=== PATIENT | female | born 1985 | race American Indian/Alaskan Native ===

== ENCOUNTER 2020-07-01 10:08 | Outpatient (CLI) | payer OTHER | END 2020-07-01 11:07 | disposition home or self-care (01) | LOC: NST 10:08 | PROVIDERS: ATTEND Obstetrics & Gynecology | DX: Z34.82 Encounter for supervision of other normal pregnancy, second trimester (principal) ==

== ENCOUNTER 2020-07-07 13:37 | Outpatient (CLI) | payer OTHER | END 2020-07-07 14:20 | disposition home or self-care (01) | LOC: NST 13:37 | PROVIDERS: ATTEND Obstetrics & Gynecology | DX: Z34.83 Encounter for supervision of other normal pregnancy, third trimester (principal) ==

== ENCOUNTER 2020-07-09 12:15 | Inpatient (IN) | payer OTHER ==
[~2020-07-09] VITALS: Ht 165.1 cm; Wt 2.3 kg
[2020-07-14] MEDS ORDERED: PRENATAL TABLE1 EAC1 PO (12:44)
== END 2020-07-16 12:42 | disposition home or self-care (01) | DRG 787 ==
LOC: OB/GYN 07-14 11:43 → LDR 07-14 11:43 → OB/GYN 07-14 21:31
PROVIDERS: ADMIT Obstetrics & Gynecology; ATTEND Obstetrics & Gynecology
PROC: 4A1HXFZ Monitoring of Products of Conception, Cardiac Rhythm, External Approach (ICD-10-PCS; 2020-07-14)
PROC: 10D00Z1 Extraction of Products of Conception, Low, Open Approach (ICD-10-PCS; principal; 2020-07-14 18:00)
DX: O64.1XX0 Obstructed labor due to breech presentation, not applicable or unspecified (principal); O41.03X0 Oligohydramnios, third trimester, not applicable or unspecified; O36.5930 Maternal care for other known or suspected poor fetal growth, third trimester, not applicable or unspecified; Z3A.38 38 weeks gestation of pregnancy; Z37.0 Single live birth

== ENCOUNTER 2020-07-11 10:42 | Outpatient (CLI) | payer OTHER | END 2020-07-11 11:32 | disposition home or self-care (01) | LOC: NST 10:42 | PROVIDERS: ATTEND Obstetrics & Gynecology | DX: Z34.83 Encounter for supervision of other normal pregnancy, third trimester (principal) ==

== ENCOUNTER 2020-07-14 08:31 | Outpatient (CLI) | payer OTHER ==
[2020-07-14] MEDS ORDERED: PRENATAL TABLE1 EAC1 PO (12:44)
== END 2020-07-14 09:11 | disposition home or self-care (01) ==
LOC: NST 08:31
PROVIDERS: ATTEND Obstetrics & Gynecology Maternal & Fetal Medicine
DX: Z34.83 Encounter for supervision of other normal pregnancy, third trimester (principal)